=== PATIENT | female | born 1975 | race Caucasian/White ===

== ENCOUNTER 2018-03-07 09:47 | Emergency (ER) | payer BC ==
[2018-03-07] MEDS ORDERED: FENTANYL CITR 100 MCG/2 ML ONE (10:23)
[2018-03-07] MEDS ORDERED: KETOROLAC 30 MG/ML INJ ONE (10:23)
[2018-03-07 11:15] LABS: Urine Blood NEGATIVE (NEG); Urine Glucose NEGATIVE (NEG); Urine Protein TRACE (NEG); Urine Specific Gravity >1.030 (1.005-1.030); Urine pH 5.5 (5.0-7.0)
[2018-03-07 11:15] LABS: Urine Bacteria 20-50 /HPF (<20); Urine RBC <5 /HPF (NONE SEEN)
[2018-03-07 11:16] LABS: Urine Culture Reflex Order NOT NEEDED; Urine Mucus 3+ /HPF (NONE SEEN)
[2018-03-07] MEDS ORDERED: DIAZEPAM 2 MG TABLET ONE (11:29)
--- NOTE | 2018-03-07 12:05 | RAD REPORT ---
EXAM DESCRIPTION: MRI - Lumbar Spine Wo Con - 03/07/2018 11:12 am CLINICAL HISTORY: Left leg radiculopathy COMPARISON: None. TECHNIQUE: Sagittal T1, T2 and STIR weighted sequences were obtained. Axial T1 and T2 sequences were obtained through the lumbar disc levels. FINDINGS: L1-2 is unremarkable Small left lateral disc bulge is present at L2-3 which does not significantly narrowed the neural for kiet Mild facet hypertrophy is present at L3-4. A minimal disc bulge is present. Mild narrowing of the rig ht neural foramina is seen. Mild ligamentum flavum facet hypertrophy is seen at L4-5. The thecal sac is normal caliber. The neura l foramina are patent. L5-S1 is unremarkable. A 9 millimeter area of low signal is present within the L5 vertebral body on T1 weighted sequences . A 7 millimeter area of increased signal on T1 weighted sequences is present within the L2 vertebral b richard probably representing a hemangioma IMPRESSION: Mild spondylosis 9 millimeter area of low signal within the L5 vertebral body is nonspecific. A followup MRI could be obtained in 3 months to assess stability.
--- NOTE | 2018-03-07 12:10 | ER ---
Nurse's Notes [facility] Name: Kinga Guillermo Age: 42 yrs Sex: Female : 1975 Arrival Date: 03/07/2018 Time: 09:50 Bed 6 Private MD: out of town, doctor Diagnosis: Low back pain;Muscle spasm of back Presentation: 03/07 10:00 Presenting complaint: Patient states: Low back pain that started 5 days ago. Patient aj reports pain started when she lifted her 5 yr old. Patient sent to ER by PCP. 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 Transition of care: patient was not received from another setting of care. Onset of symptoms was March 03, 2018. Care prior to arrival: None. 10:00 Method Of Arrival: Ambulatory aj 10:00 Acuity: CHUCK 3 aj 11:00 Risk Assessment: Do you want to hurt yourself or someone else? Patient reports no sg desire to harm self or others. Initial Sepsis Screen: Does the patient meet any 2 criteria? No. Patient's initial sepsis screen is negative. Does the patient have a suspected source of infection? No. Patient's initial sepsis screen is negative. Triage Assessment: 10:02 General: Appears in no apparent distress. uncomfortable, Behavior is calm, cooperative, aj appropriate for age. General:. Pain: Complains of pain in low back area. Neuro: Level of Consciousness is awake, alert, obeys commands, Oriented to person, place, time, situation, Appropriate for age. Respiratory: Airway is patent Respiratory effort is even, unlabored, Respiratory pattern is regular, symmetrical. Derm: Skin is intact, is healthy with good turgor, Skin is pink, warm \T\ dry. normal. Musculoskeletal: Circulation, motion, and sensation intact. 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 - Social history:: Smoking status: unknown. - Ebola Screening: : Patient negative for fever greater than or equal to 101.5 degrees Fahrenheit, and additional compatible Ebola Virus Disease symptoms Patient denies exposure to infectious person Patient denies travel to an Ebola-affected area in the 21 days before illness onset No symptoms or risks identified at this time. Screenin:00 Abuse screen: Denies threats or abuse. Denies injuries from another. Nutritional sg screening: No deficits noted. Tuberculosis screening: No symptoms or risk factors identified. Never had TB. Fall Risk None identified. Assessment: 11:00 General: Appears in no apparent distress. uncomfortable, well groomed, well developed, sg well nourished, Behavior is calm, cooperative, appropriate for age. Pain: Complains of pain in left low back. 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 Full function Speech is normal, Facial symmetry appears normal. Cardiovascular: Heart tones S1 S2 present. Respiratory: Airway is patent Respiratory effort is even, unlabored, Respiratory pattern is regular, symmetrical. GI: No signs and/or symptoms were reported involving the gastrointestinal system. : No signs and/or symptoms were reported regarding the genitourinary system. EENT: No signs and/or symptoms were reported regarding the EENT system. Derm: Skin is pink, warm \T\ dry. Musculoskeletal: Circulation, motion, and sensation intact. Reports pain in left low back. Vital Signs: 10:02 BP 137 / 107; Pulse 99; Resp 16; Temp 97.7; Pulse Ox 99% on R/A; Weight 68.04 kg; aj Height 5 ft. 4 in. (162.56 cm); 12:10 BP 113 / 61; Pulse 75; Resp 16 S; Temp 97.7; Pulse Ox 100% ; Pain 6/10; sg 10:02 Body Mass Index 25.75 (68.04 kg, 162.56 cm) aj ED Course: 09:50 Patient arrived in ED. mr 09:50 out of town, doctor is Private Physician. mr 10:02 Triage completed. aj 10:02 Arm band placed on left wrist. Patient placed in an exam room. aj 10:04 Main [place], RN is Primary Nurse. sg 10:05 Yessenia Fitzpatrick FNP-C is PHCP. snw 10:05 Ganesh Vallejo MD is Attending Physician. snw 10:48 MRI Lumbar Spine wo Con In Process Unspecified. EDMS 11:00 Patient has correct armband on for positive identification. Bed in low position. Call sg light in reach. Side rails up X2. Pulse ox on. NIBP on. Warm blanket given. Head of bed elevated. 11:00 No provider procedures requiring assistance completed. sg 11:12 MRI completed. Patient tolerated poorly. Other: Pain during entire exam limiting some em2 images. She began tolerating exam towards end of exam.. 11:14 Patient moved back from MRI. 12:45 Patient did not have IV access during this emergency room visit. sg Administered Medications: 10:32 Drug: fentaNYL (PF) 75 mcg {Note: left ventrogluteal.} Route: IM; Site: Other; sg 10:33 Drug: TORadol 60 mg {Note: left ventrogluteal.} Route: IM; Site: Other; sg 11:35 Drug: Valium 2 mg Route: PO; sg Outcome: 12:09 Discharge ordered by MD. snw 12:45 Discharged to home ambulatory, with family. 12:45 Condition: good 12:45 Discharge instructions given to patient, Instructed on discharge instructions, follow up and referral plans. medication usage, safety practices, Demonstrated understanding of instructions, follow-up care, medications, Prescriptions given X 3. 12:50 Patient left the ED. sg Signatures: Dispatcher [employer] EDMain Castro RN RN sg Myers, Amanda, RN RN aj Therrien, Shelly, SCHOOL VOCATIONAL EDUCATOR-C SCHOOL VOCATIONAL EDUCATOR-Csnw Anitra Nuñez mr Rodolfo, John Harris em2
--- NOTE | 2018-03-07 12:10 | EDPHYS ---
Physician Documentation [facility] Name: Kinga Guillermo Age: 42 yrs Sex: Female : 1975 Arrival Date: 03/07/2018 Time: 09:50 Bed 6 Private MD: out of town, doctor ED Physician Ganesh Vallejo HPI: 03/07 10:36 This 42 yrs old Female presents to ER via Ambulatory with complaints of Back snw Pain. 10:36 The patient presents with pain that is acute, and decreased range of motion, and spasm. snw The symptoms are located in the low back. Onset: The symptoms/episode began/occurred suddenly, 1 day(s) ago, and became persistent. Location: lumbar area and left low back. Associated signs and symptoms: Pertinent positives: bladder incontinence, severe pain. The problem was sustained pt twisted and lifted her 5 year old son and had sudden, severe pain. Severity of symptoms: At their worst the symptoms were severe. The patient has not experienced similar symptoms in the past. The patient has been recently seen by a physician: the patient's primary care provider, Dr. Pyle. Dr. Pyle recommends MRI evaluation and sent pt to ED. 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 - Social history:: Smoking status: unknown. - Ebola Screening: : Patient negative for fever greater than or equal to 101.5 degrees Fahrenheit, and additional compatible Ebola Virus Disease symptoms Patient denies exposure to infectious person Patient denies travel to an Ebola-affected area in the 21 days before illness onset No symptoms or risks identified at this time. ROS: 10:35 Constitutional: Negative for fever, chills, and weight loss, Eyes: Negative for injury, snw pain, redness, and discharge, ENT: Negative for injury, pain, and discharge, Neck: Negative for injury, pain, and swelling, Cardiovascular: Negative for chest pain, palpitations, and edema, Respiratory: Negative for shortness of breath, cough, wheezing, and pleuritic chest pain, Abdomen/GI: Negative for abdominal pain, nausea, vomiting, diarrhea, and constipation, : Negative for injury, bleeding, discharge, and swelling, MS/Extremity: Negative for injury and deformity, Skin: Negative for injury, rash, and discoloration, Neuro: Negative for headache, weakness, numbness, tingling, and seizure. 10:35 Back: Positive for injury or acute deformity, decreased range of motion, pain at rest, pain with movement, of the lumbar area and left low back. Exam: 10:34 Constitutional: This is a well developed, well nourished patient who is awake, alert, snw and in obvious pain Head/Face: Normocephalic, atraumatic. Eyes: Pupils equal round and reactive to light, extra-ocular motions intact. Lids and lashes normal. Conjunctiva and sclera are non-icteric and not injected. Cornea within normal limits. Periorbital areas with no swelling, redness, or edema. ENT: Nares patent. No nasal discharge, no septal abnormalities noted. Tympanic membranes are normal and external auditory canals are clear. Oropharynx with no redness, swelling, or masses, exudates, or evidence of obstruction, uvula midline. Mucous membranes moist. Neck: Trachea midline, no thyromegaly or masses palpated, and no cervical lymphadenopathy. Supple, full range of motion without nuchal rigidity, or vertebral point tenderness. No Meningismus. Chest/axilla: Normal chest wall appearance and motion. Nontender with no deformity. No lesions are appreciated. Cardiovascular: Regular rate and rhythm with a normal S1 and S2. No gallops, murmurs, or rubs. Normal PMI, no JVD. No pulse deficits. Respiratory: Lungs have equal breath sounds bilaterally, clear to auscultation and percussion. No rales, rhonchi or wheezes noted. No increased work of breathing, no retractions or nasal flaring. Abdomen/GI: Soft, non-tender, with normal bowel sounds. No distension or tympany. No guarding or rebound. No evidence of tenderness throughout. Skin: Warm, dry with normal turgor. Normal color with no rashes, no lesions, and no evidence of cellulitis. MS/ Extremity: Pulses equal, no cyanosis. Neurovascular intact. Full, normal range of motion. Neuro: Awake and alert, GCS 15, oriented to person, place, time, and situation. Cranial nerves II-XII grossly intact. Motor strength 5/5 in all extremities. Sensory grossly intact. Cerebellar exam normal. Normal gait. 10:34 Back: pain, that is severe, ROM is painful, normal spinal alignment noted, CVA tenderness, is absent, vertebral tenderness, is not appreciated, muscle spasm, is appreciated in the left low back and left mid back. Vital Signs: 10:02 BP 137 / 107; Pulse 99; Resp 16; Temp 97.7; Pulse Ox 99% on R/A; Weight 68.04 kg; aj Height 5 ft. 4 in. (162.56 cm); 12:10 BP 113 / 61; Pulse 75; Resp 16 S; Temp 97.7; Pulse Ox 100% ; Pain 6/10; sg 10:02 Body Mass Index 25.75 (68.04 kg, 162.56 cm) aj MDM: 10:11 Patient medically screened. snw 12:12 Data reviewed: vital signs, nurses notes. Data interpreted: Pulse oximetry: on room air snw is 100 %. Interpretation: normal. Counseling: I had a detailed discussion with the patient and/or guardian regarding: the historical points, exam findings, and any diagnostic results supporting the discharge/admit diagnosis, the presence of at least one elevated blood pressure reading (>120/80) during this emergency department visit, lab results, radiology results, the need for outpatient follow up, to return to the emergency department if symptoms worsen or persist or if there are any questions or concerns that arise at home. Special discussion: I have referred the patient to see his PCP for further evaluation of high blood pressure. Based on the history and exam findings, there is no indication for further emergent testing or inpatient evaluation. I discussed with the patient/guardian the need to see the back specialist for further evaluation of the symptoms. I discussed with the patient/guardian the need to see the primary care provider for further evaluation of the symptoms. 03/07 10:10 Order name: Urine Microscopic Only; Complete Time: 11:19 snw 03/07 10:41 Order name: Urine Dipstick--Ancillary (enter results); Complete Time: 11:19 bd 03/07 10:10 Order name: MRI Lumbar Spine wo Con; Complete Time: 12:07 snw 03/07 10:41 Order name: Urine --Ancillary (enter results); Complete Time: 11:19 bd 03/07 10:10 Order name: Urine Test (obtain specimen); Complete Time: 10:32 snw 03/07 10:10 Order name: Urine Dipstick-Ancillary (obtain specimen); Complete Time: 10:32 snw Administered Medications: 10:32 Drug: fentaNYL (PF) 75 mcg {Note: left ventrogluteal.} Route: IM; Site: Other; sg 10:33 Drug: TORadol 60 mg {Note: left ventrogluteal.} Route: IM; Site: Other; sg 11:35 Drug: Valium 2 mg Route: PO; sg Disposition: 22:08 Co-signature as Attending Physician, Ganesh Vallejo MD I agree with the assessment and kdr plan of care. Disposition: 03/07/18 12:09 Discharged to Home. Impression: Low back pain, Muscle spasm of back. - Condition is Stable. - Discharge Instructions: Back Pain, Adult, Hypertension, Muscle Cramps and Spasms, Musculoskeletal Pain, Back Injury Prevention, [id number], Cryotherapy, Heat Therapy. - Prescriptions for Tylenol- Codeine #3 300-30 mg Oral Tablet - take 2 tablet by ORAL route every 6 hours As needed; 30 tablet. Medrol (Allen) 4 mg Oral Tablets, Dose Pack - take 1 tablet by ORAL route as directed - follow package instructions; 1 packet. orphenadrine citrate 100 mg Oral Tablet Sustained Release - take 1 tablet by ORAL route 2 times per day As needed; 20 tablet. - Work release form, Medication Reconciliation Form, Thank You Letter, Antibiotic Education, Prescription Opioid Use form. - Follow up: Private Physician; When: 1 - 2 days; Reason: Recheck today's complaints, Continuance of care, Re-evaluation by your physician. Follow up: Emergency Department; When: As needed; Reason: Worsening of condition. Signatures: Dispatcher [employer] Main Chaparro RN RN sg Myers, Amanda, RN RN aj Rittger, Kevin, MD MD kdr Therrien, Shelly, TEACHER OF THE EMOTIONALLY DISTURBED-C TEACHER OF THE EMOTIONALLY DISTURBED-Csnw Corrections: (The following items were deleted from the chart) 12:50 12:09 03/07/2018 12:09 Discharged to Home. Impression: Low back pain; Muscle spasm of sg back. Condition is Stable. Forms are Medication Reconciliation Form, Thank You Letter, Antibiotic Education, Prescription Opioid Use. Follow up: Private Physician; When: 1 - 2 days; Reason: Recheck today's complaints, Continuance of care, Re-evaluation by your physician. Follow up: Emergency Department; When: As needed; Reason: Worsening of condition. snw
== END 2018-03-07 12:50 | disposition home or self-care (01) ==
LOC: ER 09:47
DX: M62.830 Muscle spasm of back (principal); Z91.048 Other nonmedicinal substance allergy status
CPT/HCPCS: 72148; 81003; 81015; 81025; 96372; 99284; J3010

== ENCOUNTER 2018-07-03 08:30 | Day surgery (SDC) | payer BC ==
[2018-07-02 13:53] LABS: Absolute Lymphocytes (CBC) 1.1 K/uL (0.7-4.9); Absolute Monocytes 0.3 K/uL (0.1-1.3); Absolute Neutrophil 2.1 K/uL (1.8-8.0); Eosinophils % 2.7 % (0-4.4); Hematocrit 35.2 % (36.0-45.0); Lymphocytes % 30.5 % (15.3-44.8); MCH 29.2 pg (27.0-35.0); MCV 84.2 fL (80-100); MPV 9.1 fL (7.6-11.3); Monocytes % 7.4 % (3.3-12.3); RBC Red Blood Cell Count 4.18 M/uL (3.86-4.86)
[2018-07-02 14:00] LABS: BUN Blood Urea Nitrogen 7 mg/dL (7-18); Bicarbonate 32 mmol/L (21-32); Glucose Level 92 mg/dL (74-106); Potassium 3.6 mmol/L (3.5-5.1); Sodium Level 144 mmol/L (136-145)
--- NOTE | 2018-07-02 14:06 | RAD REPORT ---
EXAM DESCRIPTION: RAD - Chest Pa And Lat (2 Views) - 07/02/2018 1:39 pm CLINICAL HISTORY: Preop chest, soft tissue mass removal COMPARISON: None. TECHNIQUE: PA and lateral views of the chest were obtained. FINDINGS: The lungs are clear. Heart size is normal and central vasculature is within normal limit s. No pleural effusion or pneumothorax seen. No acute bone finding. Thoracolumbar mild scoliosis ch anges are present. No fused or anomalous vertebrae. No aortic abnormality. IMPRESSION: No acute cardiopulmonary process.
--- NOTE | 2018-07-02 15:26 | EKG ---
Test Date: 2018-07-02 Test Time: 13:26:58 Hospice Social Worker: JUAN MEASUREMENT RESULTS: Intervals: Rate: 58 MA: 150 QRSD: 82 QT: 402 QTc: 394 [place]: P: 46 MA: 150 QRS: 34 T: 44 INTERPRETIVE STATEMENTS: Sinus bradycardia Otherwise normal ECG Compared to ECG 05/17/2017 16:05:33 Sinus rhythm no longer present Electronically Signed On 07-02-18 15:25:14 CDT by Avel Brand
[2018-07-03] MEDS ORDERED: Ringers Lactate 1,000 ML IV ONE (09:38)
[2018-07-03] MEDS: CEFAZOLIN/SWI 1gm 1 GM/10 ML SYR ONE ×2 (10:20→10:42)
[2018-07-03] MEDS: CEFOXITIN/SWI 1gm 1 GM/10 ML SYR ONE ×3 (10:32→13:54)
[2018-07-03] MEDS ORDERED: PROPOFOL 200 MG/20 ML VIAL IV ONE (10:39)
[2018-07-03] MEDS ORDERED: MIDAZOLAM HCL 2 MG/2 ML INJ ONE (10:39)
[2018-07-03] MEDS ORDERED: LIDOCAINE 2% MPF 5 ML VIAL ONE (10:39)
[2018-07-03] MEDS ORDERED: FENTANYL CITR 100 MCG/2 ML ONE (10:39)
[2018-07-03] MEDS ORDERED: ONDANSETRON HCL 40 MG/20 ML VIAL ONE (10:44)
[2018-07-03] MEDS: MORPHINE 4 MG/ML SYR ONE ×6 (11:51→12:16)
[2018-07-03] MEDS ORDERED: HYDROCODONE/APAP 7.5/325 MG TAB ONE (13:19)
--- NOTE | 2018-07-03 23:38 | OP ---
Date of Procedure: 07/03/2018 Surgeon: Rich Muñoz MD Preoperative Diagnoses: Left groin pain, enlarged lymph node. Postoperative Diagnoses: Left groin pain, enlarged lymph node. Procedure: Excision of left groin lymph node. Estimated Blood Loss: Minimal. Specimen: Enlarged lymph node. Findings: As above. Anesthesia: General. Complications: None. Disposition: The patient tolerated the procedure in stable condition and taken to recovery in good g eneral condition. Procedure In Detail: The patient was brought to the OR and placed in supine position. General anest hesia was begun. The patient was prepped and draped in the usual sterile fashion. Marcaine 0.5% was infiltrated locally. A 15-blade was used to make a 4 cm oblique incision above the inguinal crease. The subcutaneous tissue was divided and deep in the subcutaneous tissue, enlarged lymph node was id entified. The neurovascular bundle for the lymph node was clamped and several enlarged lymph nodes w ere excised and sent to Pathology as specimen. The base was tied with 2-0 silk ties. Wound was irri gated. Bleeding was controlled with cautery and then 3-0 chromic was used to approximate the subcuta neous tissue. Sanborn were used to close the skin. Sterile dressing was applied. The patient was a wakened and taken to recovery in good general condition. Discharge Note: The patient will go to day surgery and home when stable. Disposition: Home. Condition: Stable. Discharge Instructions: Resume home meds and diet. Activity as tolerated. No heavy lifting. Remov e outer dressing in 2 days. Shower. Keep wound clean and dry. Follow up in my office in a week. C all for appointment. Tylenol No. 3, 1 tablet p.o. q.4 p.r.n. pain. The patient is already on antibi otics. /MODL Voice ID: [id number] Report ID: [id number]
== END 2018-07-03 14:15 | disposition home or self-care (01) ==
LOC: OR 08:30
PROVIDERS: ATTEND Surgery
PROC: 07BJ0ZX Excision of Left Inguinal Lymphatic, Open Approach, Diagnostic (ICD-10-PCS; principal; 2018-07-03 09:00)
DX: R59.9 Enlarged lymph nodes, unspecified (principal); R10.32 Left lower quadrant pain
CPT/HCPCS: 36415; 71046; 80048; 85025; 87015; 87070; 87075; 87102; 87116; 87205; 87206; 88305; 88312; 93005; J0690; J2250; J2405; J3010